=== PATIENT | male | born 1980 | race Hispanic/Latino ===

== ENCOUNTER 2017-03-21 03:28 | Emergency (ER) | payer OTHER, SELFPAY ==
[2017-03-21] MEDS ORDERED: ACETAMINOPHEN-CODEINE ELIXIR 5 ML UDCUP ONE (03:47)
== END 2017-03-21 05:11 | disposition home or self-care (01) ==
LOC: EDH 03:28
DX: J20.9 Acute bronchitis, unspecified (principal); I10 Essential (primary) hypertension; E78.5 Hyperlipidemia, unspecified; Z88.8 Allergy status to other drugs, medicaments and biological substances
CPT/HCPCS: 87804

== ENCOUNTER 2024-09-28 12:55 | Emergency (ER) | payer BC, SELFPAY ==
[2024-09-28 13:29] LABS: IMMATURE GRANULOCYTE ABSOLUTE 0.02 K/uL (0-1); NUCLEATED RED BLOOD CELLS 0.0 % (0.0-0.19); PLATELET COUNT (AUTO) 267 K/uL (130-400); RED BLOOD CELL COUNT(AUTO) 5.37 MIL/uL (4.50-6.20); RED CELL DISTRIBUTION WIDTH 11.9 % (11.0-15.5); WHITE BLOOD COUNT (AUTO) 7.9 K/uL (4.8-10.8)
[2024-09-28 13:39] LABS: CREATININE 1.8 mg/dL (0.5-1.3); GLOMERULAR FILTR. RATE CALC 47.0 mL/min (>90); GLUCOSE,RANDOM 107.0 mg/dL (70-105); SODIUM SERUM 135.0 mmol/L (136-145); UREA NITROGEN, BLOOD 30.0 mg/dL (7-18)
[2024-09-28 13:43] LABS: ASPARTATE AMINOTRANSFERASE 49.0 U/L (10-37); TOTAL PROTEIN, SERUM 8.5 g/dL (6.0-8.3)
[2024-09-28] MEDS: 0.9%NACL 1000ML 1,000 ML IV ONE (14:15)
--- NOTE | 2024-09-28 14:20 | HMCIMG ---
EXAM: CR Chest, 1 View. CLINICAL HISTORY: CP COMPARISON: None provided. FINDINGS: LUNGS: There is no mass, infiltrate, or acute pulmonary abnormality. PLEURAL SPACES: No evidence of pleural effusion or pneumothorax. MEDIASTINUM: Cardiac size and mediastinal contours within normal limits. BONES: No aggressive appearing osseous lesion seen. IMPRESSION: No acute cardiopulmonary pathology is evident. /[place]
--- NOTE | 2024-09-28 15:24 | EKG ---
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
[2024-09-28] MEDS ORDERED: IOHEXOL 350 MG/ML 100ML INFUS..BTL IV ONE (15:53)
[2024-09-28 16:36] VITALS: BP 114/62; PULSE 88; RESP 18; TEMP 98.1; O2SAT 96
--- NOTE | 2024-09-28 16:45 | HMCIMG ---
EXAM: US Abdomen, Right Upper Quadrant. CLINICAL HISTORY: ruq abd pain TECHNIQUE: Right upper quadrant sonography performed with image documentation. COMPARISON: CT images from today. FINDINGS: LIVER: The liver is normal in caliber; the right hepatic lobe measures up to 15.2 cm in craniocaudal dimension. There is increased echogenicity of the hepatic parenchyma reflecting hepatic steatosis. There is no focal hepatic abnormality or intrahepatic biliary ductal dilatation. Hepatopetal flow noted within the main portal vein. GALLBLADDER: The gallbladder appears normal. No gallbladder wall thickening seen. No gallstones are evident. COMMON BILE DUCT: Obscured by overlying bowel gas. PANCREAS: Obscured by overlying bowel gas. RIGHT KIDNEY: Unremarkable. Normal renal contours. No renal mass or calculus. No hydronephrosis. IMPRESSION: The examination is limited by overlying bowel gas. Allowing for this, there is no acute abnormality appreciated. Hepatic steatosis. /[place]
--- NOTE | 2024-09-28 17:41 | HMCIMG ---
EXAM: CT Abdomen and Pelvis with IV contrast CLINICAL HISTORY: persistent ruq abd pain TECHNIQUE: Axial computed tomography images of the abdomen and pelvis with intravenous contrast. CONTRAST: with intravenous contrast. COMPARISON: None provided. FINDINGS: LUNG BASES: The lung bases appear clear. No pleural effusions are seen. LIVER: Unremarkable. GALLBLADDER AND BILE DUCTS: The gallbladder appears within normal limits. No radioopaque gallstones are seen. No biliary ductal dilatation is evident. PANCREAS: Unremarkable. SPLEEN: Unremarkable. ADRENAL GLANDS: Unremarkable. KIDNEYS, URETERS, AND BLADDER: The kidneys appear within normal limits. There is no hydronephrosis or hydroureter. No urinary calculi are seen. STOMACH AND BOWEL: Unremarkable appearance of the stomach and bowel. No evidence of bowel obstruction. No evidence suggesting enteritis or colitis. APPENDIX: No evidence of acute appendicitis on CT examination. PERITONEUM: No free fluid. No free air. LYMPH NODES: No lymphadenopathy is evident. REPRODUCTIVE: Unremarkable as visualized. VASCULATURE: No evidence of abdominal aortic aneurysm. BONES: No aggressive appearing osseous lesion. No acute osseous pathology evident. IMPRESSION: No acute intra-abdominal or pelvic abnormality. /[place]
--- NOTE | 2024-09-28 18:00 | ERN ---
General Chief Complaint: Abdominal Pain Stated Complaint: ABD PAIN Time Seen by MD: 13:02 Time Seen by Midlevel: 13:02 Source: patient History of Present Illness Initial Comments Patient is a 44-year-old male presenting to the emergency department for evaluation of right upper quadrant abdominal pain that started two days ago and has progressively worsened. Associated symptoms include nausea especially after eating. The only past medical history he reports his GERD. Allergies: Coded Allergies: esomeprazole (Unverified Allergy, Unknown, 09/28/24) Past Medical History Past Medical History: GERD, Hypertension Past Surgical History: None ROS Dictation CONSTITUTIONAL: Negative except for HPI HEAD/FACE: Negative except for HPI EENT: Negative except for HPI RESPIRATORY: Negative except for HPI GASTROINTESTINAL/ABDOMINAL: Negative except for HPI GENITOURINARY: Negative except for HPI MUSCULOSKELETAL: Negative except for HPI INTEGUMENTARY: Negative except for HPI NEUROLOGICAL/PSYCH: Negative except for HPI HEMATOLOGIC/LYMPHATIC: Negative except for HPI All Systems Negative, Except as noted above. 13 point review of systems assessed and all negative except for above. Physical Exam Physical Exam Dictation Vital Signs reviewed General Appearance: Alert, oriented x 3, no acute distress, well developed, nourished. Head and Face: non-traumatic. Eyes: PERRL, pink conjunctivas, eyelid no trauma, anterior chamber with arcus senilis. Ears: Pinnas intact and no signs of trauma or erythema ear canals clear and no discharge TM no erythema Nose: No discharge, no bleeding. Oropharynx: Mouth normal, tongue pink, pharynx clear,no erythema, tonsils no exudates, no abscesses noted, mucous membrane moist Neck: Supple, non-tender, no thyromegaly, no masses, no JVD, no bruits Breast:Deferred Chest:No tenderness, no crepitus, no paradoxical movement, no retractions Lungs:Clear, well-ventilated, symmetric, no rales, no wheezing, no rhonchi, no stridor, good breath sounds bilaterally Heart: Regular rate, regular rhythm, no murmur, no gallops Vascular: no peripheral edema, Abdomen: Soft, positive bowel sounds, nondistended, no guarding, Right upper quadrant abdominal tenderness, no rebound, no masses no hepatomegaly, no splenomegaly, no Diaz's sign, no hernias. Rectal: Deferred Genital: Deferred Neurological: Normal speech, motor function intact, sensory function intact Musculoskeletal: Neck nontender, full range of motion, back nontender, full range of motion, Extremities: nontender, full range of motion Skin: Color pink, dry, no turgor, no rash, no lacerations, no abrasions, no contusions. Lymphatic: Deferred Results Laboratory and Microbiology Lab and Micro Result Laboratory Tests Test 09/28/24 13:11 White Blood Count 7.9 K/uL (4.8-10.8) Red Blood Count 5.37 MIL/uL (4.50-6.20) Hemoglobin 18.2 g/dL (14.0-18.0) H Hematocrit 49.7 % (42-54) Mean Corpuscular Volume 92.6 fL (79-99) Mean Corpuscular Hemoglobin 33.9 pg (27.0-33.0) H Mean Corpuscular Hemoglobin Concent 36.6 g/dL (32.0-36.0) H Red Cell Distribution Width 11.9 % (11.0-15.5) Platelet Count 267 K/uL (130-400) Mean Platelet Volume 9.4 fL (7.5-10.5) Immature Granulocyte % (Auto) 0.3 % (0-1) Neutrophils (%) (Auto) 63.7 % (40.0-77.0) Lymphocytes (%) (Auto) 23.3 % (21.0-51.0) Monocytes (%) (Auto) 11.1 % (3.0-13.0) Eosinophils (%) (Auto) 1.1 % (0.0-8.0) Basophils (%) (Auto) 0.5 % (0.0-5.0) Neutrophils # (Auto) 5.0 K/uL (1.8-7.7) Lymphocytes # (Auto) 1.8 K/uL (1.0-4.8) Monocytes # (Auto) 0.9 K/uL (0.1-1.0) Eosinophils # (Auto) 0.09 K/uL (0.00-0.70) Basophils # (Auto) 0.04 K/uL (0.00-0.20) Absolute Immature Granulocyte (auto 0.02 K/uL (0-1) Nucleated Red Blood Cells 0.0 % (0.0-0.19) Red Blood Cell Morphology ANISO 1+ Sodium Level 135 mmol/L (136-145) L Potassium Level 4.1 mmol/L (3.5-5.1) Chloride Level 97 mmol/L (101-111) L Carbon Dioxide Level 24 mmol/L (21-32) Blood Urea Nitrogen 30 mg/dL (7-18) H Creatinine 1.8 mg/dL (0.5-1.3) H Glomerular Filtration Rate Calc 47 mL/min (>90) Random Glucose 107 mg/dL (70-105) H Total Calcium 9.4 mg/dL (8.5-10.1) Total Bilirubin 1.5 mg/dL (0.2-1.0) H Direct Bilirubin 0.3 mg/dL (0.0-0.3) Aspartate Amino Transf (AST/SGOT) 49 U/L (10-37) H Alanine Aminotransferase (ALT/SGPT) 115 U/L (12-78) H Alkaline Phosphatase 110 U/L (50-136) Troponin I High Sensitivity 14 ng/L (4-75) Total Protein 8.5 g/dL (6.0-8.3) H Albumin 4.4 g/dL (3.5-5.0) Lipase 54 U/L (16-77) Labs Reviewed?: Yes MDM MDM: Differential diagnosis: Cholecystitis, cholelithiasis, biliary colic There are no social concerns with this patient. Prescription drug management Prescriptions will include: Zofran, Pepcid, Toradol Medical management and examination interpretation discussions were had by me with other qualified healthcare professionals as indicated for the patient's care. ED Course Orders Procedure Category Date Status Time Cbc With Differential LAB 09/28/24 Complete 13:04 Basic Metabolic Panel LAB 09/28/24 Complete 13:04 Hepatic Function Panel LAB 09/28/24 Complete 13:04 Lipase LAB 09/28/24 Complete 13:04 Troponin I High LAB 09/28/24 Complete Sensitivity 13:04 12 Lead Ekg Tracing- EKG 09/28/24 Complete Technical 13:04 Chest 1vw RAD 09/28/24 Resulted 13:04 0.9%Nacl 1000ml (Ns PHA 09/28/24 Complete 1000ml) 14:30 Us Abdominal Ruq\Ltd US 09/28/24 Resulted 14:04 Ct Abdomen/Pelvis CT 09/28/24 Resulted W/Contrast 15:30 Iohexol (Omnipaque) PHA 09/28/24 Complete 15:53 Current Medications Medications (Trade) Dose Ordered Sig/Hilary Route PRN Reason Start Time Stop Time Status Last Admin Dose Admin Iohexol (Omnipaque) 35,000 mg STK-MED ONCE IV 09/28/24 15:53 09/28/24 15:53 DC Sodium Chloride 1,000 ml @ 0 mls/hr ONCE ONCE IV 09/28/24 14:30 09/28/24 14:31 DC 09/28/24 14:15 Vital Signs Date Time Temp Pulse Resp B/P (MAP) Pulse Ox O2 Delivery O2 Flow Rate FiO2 09/28/24 16:36 98.1 88 18 114/62 96 Room Air* 0 21 09/28/24 15:23 98.1 88 18 114/62 96 Room Air* 0 21 09/28/24 13:04 98.1 92 18 100/66 97 Room Air* 0 09/28/24 12:56 98.1 102 18 100/66 96 Room Air [address] [address] IMAGING REPORT Signed PATIENT: SHAD GRAMAJO MR#: [id number] : 1980 SEX: M AGE: 44 LOCATION: [facility] ORDER 29 STATUS: REG ER REPORT#: [id number] SERVICE 29 REASON: persistent ruq abd pain ORDERING PHYSICIAN: SHELLY BARRY PROCEDURE: ABD PEL W - CT ABDOMEN/PELVIS W/CONTRAST EXAM: CT Abdomen and Pelvis with IV contrast CLINICAL HISTORY: persistent ruq abd pain TECHNIQUE: Axial computed tomography images of the abdomen and pelvis with intravenous contrast. CONTRAST: with intravenous contrast. COMPARISON: None provided. FINDINGS: LUNG BASES: The lung bases appear clear. No pleural effusions are seen. LIVER: Unremarkable. GALLBLADDER AND BILE DUCTS: The gallbladder appears within normal limits. No radioopaque gallstones are seen. No biliary ductal dilatation is evident. PANCREAS: Unremarkable. SPLEEN: Unremarkable. ADRENAL GLANDS: Unremarkable. KIDNEYS, URETERS, AND BLADDER: The kidneys appear within normal limits. There is no hydronephrosis or hydroureter. No urinary calculi are seen. STOMACH AND BOWEL: Unremarkable appearance of the stomach and bowel. No evidence of bowel obstruction. No evidence suggesting enteritis or colitis. APPENDIX: No evidence of acute appendicitis on CT examination. PERITONEUM: No free fluid. No free air. LYMPH NODES: No lymphadenopathy is evident. REPRODUCTIVE: Unremarkable as visualized. VASCULATURE: No evidence of abdominal aortic aneurysm. BONES: No aggressive appearing osseous lesion. No acute osseous pathology evident. IMPRESSION: No acute intra-abdominal or pelvic abnormality. /[place] DICTATED BY: MEERA SPENCER MD DATE: 09/28/241839 ELECTRONICALLY SIGNED BY: MEERA SPENCER MD DATE: 09/28/241839 [address] [address] IMAGING REPORT Signed PATIENT: SHAD GRAMAJO MR#: [id number] : 1980 SEX: M AGE: 44 LOCATION: [facility] ORDER 03 STATUS: [facility] REPORT#: [id number] SERVICE 03 REASON: ruq abd pain ORDERING PHYSICIAN: SHELLY BARRY PROCEDURE: ABDRUQLTD - US ABDOMINAL RUQ\LTD EXAM: US Abdomen, Right Upper Quadrant. CLINICAL HISTORY: ruq abd pain TECHNIQUE: Right upper quadrant sonography performed with image documentation. COMPARISON: CT images from today. FINDINGS: LIVER: The liver is normal in caliber; the right hepatic lobe measures up to 15.2 cm in craniocaudal dimension. There is increased echogenicity of the hepatic parenchyma reflecting hepatic steatosis. There is no focal hepatic abnormality or intrahepatic biliary ductal dilatation. Hepatopetal flow noted within the main portal vein. GALLBLADDER: The gallbladder appears normal. No gallbladder wall thickening seen. No gallstones are evident. COMMON BILE DUCT: Obscured by overlying bowel gas. PANCREAS: Obscured by overlying bowel gas. RIGHT KIDNEY: Unremarkable. Normal renal contours. No renal mass or calculus. No hydronephrosis. IMPRESSION: The examination is limited by overlying bowel gas. Allowing for this, there is no acute abnormality appreciated. Hepatic steatosis. /[place] DICTATED BY: KORINA SRIVASTAVA Jr., MD DATE: 09/28/241743 ELECTRONICALLY SIGNED BY: KORINA SRIVASTAVA Jr., MD DATE: 09/28/241743 [place] [address] [place] [address] [id number] IMAGING REPORT Signed PATIENT: SHAD GRAMAJO MR#: [id number] : 1980 SEX: M AGE: 44 LOCATION: [facility] ORDER 130 STATUS: [facility] REPORT#: [id number] SERVICE 03 REASON: CP ORDERING PHYSICIAN: SHELLY BARRY PROCEDURE: CXR1VW - CHEST 1VW EXAM: CR Chest, 1 View. CLINICAL HISTORY: CP COMPARISON: None provided. FINDINGS: LUNGS: There is no mass, infiltrate, or acute pulmonary abnormality. PLEURAL SPACES: No evidence of pleural effusion or pneumothorax. MEDIASTINUM: Cardiac size and mediastinal contours within normal limits. BONES: No aggressive appearing osseous lesion seen. IMPRESSION: No acute cardiopulmonary pathology is evident. /[place] DICTATED BY: MEERA SPENCER MD DATE: 09/28/241519 ELECTRONICALLY SIGNED BY: MEERA SPENCER MD DATE: 09/28/241519 DX & DISP Disposition: Discharge Departure Impression: Primary Impression: Dehydration Additional Impression: Gastritis Condition: Stable Additional Instructions: Your blood work today is consistent with dehydration. There was a slight elevation in your total bilirubin at 1.5. An ultrasound was performed but we were unable to fully visualize your gallbladder due to an increase in bowel air. A CT scan was performed which does not reveal any intra-abdominal abnormality. Your gallbladder and liver appeared normal. Your lipase level was normal which rules out pancreatitis. The remainder of your blood work was unremarkable. Your EKG and cardiac enzymes are negative. Please follow up with your primary care doctor in 2-3 days for repeat evaluation. Referrals: SELF,REFERRAL (PCP) Time of Disposition: 17:57 I have reviewed the case, and I agree with, Diagnosis and Plan I performed the substantive portion of the visit. I have reviewed and perso subha made and approve the management plan that is documented in the note by myself or the JOURDAN. I acknowledge for responsibility for the patient's management plan. SHELLY BARRY Sep 28, 2024 18:00
== END 2024-09-28 18:11 | disposition home or self-care (01) ==
LOC: EDH 12:55
DX: E86.0 Dehydration (principal); K29.70 Gastritis, unspecified, without bleeding; I10 Essential (primary) hypertension; K21.9 Gastro-esophageal reflux disease without esophagitis
CPT/HCPCS: 99285; 74177; 76705; 71045; 80076; 84484; 80048; 83690; 85025; 36415; 93005; J7030; Q9967